=== PATIENT | male | born 1955 | race Caucasian/White ===

== ENCOUNTER 2018-03-20 16:29 | Observation (INO) | payer BC, OTHER ==
--- NOTE | 2018-03-20 17:43 | RAD ---
CHEST ONE VIEW: 03/20/18 HISTORY: 62-year-old male with history of chest pain and shortness of breath. There is bilateral hyperinflation in the mid and upper lung zones bilaterally. Heart size is within n ormal limits. No confluent pneumonia, overt edema, or pleural effusion. IMPRESSION: Bilateral hyperinflation. No pneumonia, edema, pleural effusion, or other acute process. POS: [facility]
[2018-03-20 18:00] LABS: #Eosinphils 0.1 thou/uL (0.0-0.7); #Lymphocytes 0.8 thou/uL (1.20-3.40); #Monocytes 0.5 thou/uL (0.11-0.59); #Neutrophils 5.1 thou/uL (1.40-6.50); %Basophils 0.4 % (0.0-1.0); %Eosinophils 1.1 % (0.0-10.0); %Lymphocytes 12.8 % (21.0-51.0); %Monocytes 7.1 % (0.0-10.0); %Neutrophils 78.6 % (42.0-75.0); Hemoglobin 16.2 g/dL (14.0-18.0); Mean Corpuscular HGB CONC 33.7 g/dL (32.0-36.0); Mean Corpuscular Hemoglobin 34.9 pg (27.0-31.0); Platelet Count 189 thou/uL (130-400); RBC Distribution Width 11.7 % (11.5-14.5); Red Blood Cell (RBC) Count 4.64 mill/uL (4.70-6.10); White Blood Cell (WBC) Count 6.5 thou/uL (4.8-10.8)
[2018-03-20 18:24] LABS: ALT (SGPT) 37 U/L (8-55); AST (SGOT) 29 U/L (5-34); Albumin 4.2 g/dL (3.4-4.8); Alkaline Phosphatase 31 U/L (40-150); Anion Gap 12 mmol/L (10-20); BUN (Urea Nitrogen) 16 mg/dL (8.4-25.7); Bilirubin, Total 0.6 mg/dL (0.2-1.2); CK (CPK) 106 U/L (30-200); Calc. Creatinine Clearance 0 mL/min (70-130); Calcium 8.9 mg/dL (7.8-10.44); Carbon Dioxide 24 mmol/L (23-31); Chloride 105 mmol/L (98-107); Estimated GFR-MDRD 54; Glucose 123 mg/dL (80-115); Lipase 78 U/L (8-78); Magnesium 2.3 mg/dL (1.6-2.6); Potassium 4.4 mmol/L (3.5-5.1); Protein, Total 7.2 g/dL (5.8-8.1); Sodium 137 mmol/L (136-145)
[2018-03-20 18:25] LABS: CKMB 1.2 ng/mL (0-6.6); Troponin I Less than 0.010 ng/mL (< 0.028)
[2018-03-20 21:08] LABS: Bilirubin Negative (Negative); Blood, Urine Negative (Negative); Clarity CLEAR (Clear); Glucose, Urine (Dipstick) Negative (Negative); Leukocyte Negative (Negative); Nitrite Negative (Negative); Protein, Urine (Dipstick) Negative (Neg-Trace); Specific Gravity, Urine 1.014 (1.002-1.036); pH, Urine 7.5 (5.0-9.0)
[2018-03-20 21:23] LABS: Troponin I Less than 0.010 ng/mL (< 0.028)
[2018-03-20 23:01] VITALS: BMI 37.0
[2018-03-20] MEDS ORDERED: Ondansetron PF 4 MG/2 ML Vial IVP PRN (23:06)
[2018-03-20] MEDS ORDERED: Ondansetron ODT 4 MG TAB SL PRN (23:06)
[2018-03-21 00:33] LABS: Troponin I Less than 0.010 ng/mL (< 0.028)
[2018-03-21] MEDS ORDERED: Nitroglycerin 0.4 MG TAB (25 Tab Bottle) PO PRN (01:09)
[2018-03-21] MEDS ORDERED: Senokot S 8.6-50 MG TAB PO PRN (01:09)
[2018-03-21] MEDS ORDERED: Acetaminophen 650 MG Suppository PR PRN (01:09)
[2018-03-21] MEDS ORDERED: Acetaminophen 325 MG TAB PO PRN (01:09)
--- NOTE | 2018-03-21 01:36 | HP ---
PRIMARY CARE PROVIDER: Herrera Garzon M.D. CHIEF COMPLAINT: Shortness of breath. HISTORY OF PRESENT ILLNESS: Mr. Silverman is a pleasant 62-year-old gentleman, who was seen at [facility] on 03/21/2018. He had breakfast yesterday. This was followed by what he describes as stomach upset and nausea. He then started feeling short of breath. The shortness of breath was worse with exertion. He also repo rtedly had generalized weakness and lightheadedness. He denies having fevers, chills or headache. He was recently treated with Bactrim DS for cellulitis and finished the course a couple of days ago. He denies having any chest pain. He reports shortness of breath is better. REVIEW OF SYSTEMS: All other systems reviewed and found to be negative. PAST MEDICAL HISTORY: Gastroesophageal reflux disease and hypertension. PAST SURGICAL HISTORY: Disk repair. PSYCHIATRIC HISTORY: None. SOCIAL HISTORY: The patient drinks alcohol occasionally. He denies tobacco use or recreational drug use. ALLERGIES: No known drug allergies. CURRENT MEDICATIONS: Lisinopril 20 mg daily and omeprazole 20 mg daily. PHYSICAL EXAMINATION: GENERAL: On examination, Mr. Silverman is awake and alert, not in acute distress. He is obese, with a B OH of 37. VITAL SIGNS: He has blood pressure of 141/81, respiratory rate of 22, oxygen saturation 95% on room air and pulse 85. He is afebrile. EYES: No scleral icterus. No conjunctival pallor. ENT: Moist mucosal membranes, no oropharyngeal erythema or exudates. NECK: Supple, nontender. Trachea is midline. RESPIRATORY: Accessory muscles of breathing are not active. Chest wall movements are symmetric bila terally. Lungs are clear to auscultation without wheeze, rhonchi or crepitations. CARDIOVASCULAR: S1 and S2 are heard, regular. Peripheral pulses palpable. No carotid bruits, no pe ricardial rub. ABDOMEN: Soft, nontender, bowel sounds heard, no hepatomegaly, no splenomegaly. NEUROLOGIC: Cranial nerves II-XII intact, deep tendon reflexes 2+. MUSCULOSKELETAL: Power is 5/5 in all 4 extremities. SKIN: No rashes or subcutaneous nodules. LYMPHATIC: No cervical lymphadenopathy. PSYCHIATRIC: Normal mood, normal affect, patient is oriented to person, place, and time. IMAGING AND LABORATORY DATA: Mr. Silverman' labs and investigations were reviewed. I reviewed his elect rocardiogram, which shows normal sinus rhythm, no ST changes to suggest an acute coronary syndrome. I also reviewed his chest x-ray, which does not show any pulmonary infiltrates. He has normal white count, normal hemoglobin, macrocytosis with MCV of 104, normal platelet count, D-dimer less than 0.27 , normal electrolytes, normal blood urea nitrogen, elevated creatinine of 1.35, normal hemoglobin A1c of 5.0, unremarkable liver profile, normal BNP and troponin I negative x3. Urinalysis is negative. ASSESSMENT AND PLAN: Mr. Silverman is a pleasant 62-year-old gentleman, who was seen at [facility] on 03/21/2018. His problem list includes: 1. Shortness of breath: Etiology is unclear at this time. He will be admitted to the hospital for further management. We will check stress test to rule out atypical presentation of acute coronary sy ndrome. 2. Renal insufficiency: Duration is unclear. We will provide intravenous hydration and recheck cre atinine level. 3. Hypertension: We will hold lisinopril for now, given renal insufficiency. We will monitor vital signs and initiate antihypertensives as needed. 4. Gastroesophageal reflux disease: Continue proton pump inhibitor. 5. Macrocytosis: Check vitamin B12 and folate level. Many thanks for allowing me to participate in your patient's care. Please feel free to contact me wi th any questions or concerns. LEVEL OF RISK: High. LEVEL OF COMPLEXITY: High.
[2018-03-21] MEDS: Sodium Chloride 0.9% 1,000 ML IV SCH ×2 (01:46→14:04)
[2018-03-21] MEDS ORDERED: Calcium Carbonate 500 MG ChewTAB PO SCH (02:15)
[2018-03-21 04:16] LABS: #Eosinphils 0.2 thou/uL (0.0-0.7); #Lymphocytes 1.3 thou/uL (1.20-3.40); #Monocytes 0.5 thou/uL (0.11-0.59); #Neutrophils 4.4 thou/uL (1.40-6.50); %Basophils 0.4 % (0.0-1.0); %Eosinophils 2.4 % (0.0-10.0); %Lymphocytes 20.1 % (21.0-51.0); %Monocytes 8.3 % (0.0-10.0); %Neutrophils 68.8 % (42.0-75.0); Hemoglobin 15.2 g/dL (14.0-18.0); Mean Corpuscular HGB CONC 33.9 g/dL (32.0-36.0); Mean Corpuscular Hemoglobin 35.2 pg (27.0-31.0); Mean Platelet Volume 7.3 fL (7.4-10.4); Platelet Count 172 thou/uL (130-400); RBC Distribution Width 11.7 % (11.5-14.5); White Blood Cell (WBC) Count 6.5 thou/uL (4.8-10.8)
[2018-03-21 04:45] LABS: Anion Gap 9 mmol/L (10-20); BUN (Urea Nitrogen) 14 mg/dL (8.4-25.7); Calc. Creatinine Clearance 119 mL/min (70-130); Calcium 8.9 mg/dL (7.8-10.44); Carbon Dioxide 25 mmol/L (23-31); Chloride 107 mmol/L (98-107); Estimated GFR-MDRD 66; Glucose 108 mg/dL (80-115); Potassium 3.8 mmol/L (3.5-5.1); Sodium 137 mmol/L (136-145)
[2018-03-21 05:10] LABS: Folate (Folic Acid) 5.5 ng/mL (7.0-31.4)
[2018-03-21] MEDS ORDERED: Aspirin 325 MG TAB PO SCH ×2 (09:00)
[2018-03-21 15:26] VITALS: BP 179/95; TEMP 97.4
--- NOTE | 2018-03-21 17:14 | NM ---
NUCLEAR MEDICINE CARDIAC SPECT STRESS ONLY WITH EF AND WALL MOTION 03/21/18 HISTORY: 62-year-old male with history ACS, chest pain, hypertension, diabetes mellitus. The exam was performed with adenosine Sestamibi protocol. Patient was injected with 28 millicuries technetium 99m Sestamibi intravenously for stress images. Mu ltiple SPECT images in the short axis, vertical long axis and horizontal long axis demonstrates no sc an evidence for infarct or ischemia. LHR - 0.35. EDV - 100 mL. EF- 63%. Myocardial perfusion wall motion: Wall motion is normal. IMPRESSION: Unremarkable stress only cardiac SPECT. No scan evidence for infarct or ischemia. POS: [facility]
--- NOTE | 2018-03-23 10:29 | DIS ---
DATE OF ADMISSION: 03/20/2018 DATE OF DISCHARGE: 03/21/2018 PRIMARY CARE PHYSICIAN: Dr. Garzon. CONSULTATIONS: None. PROCEDURES: The patient had a stress test with nuclear medicine today, date of discharge. FINDINGS: Unremarkable stress only cardiac SPECT, no evidence for infarct or ischemia. The patient also had a chest x-ray, showed bilateral hyperinflation. No pneumonia, edema, pleural effusion, or o ther acute process was noted. DISCHARGE DIAGNOSES: 1. Shortness of breath, resolved. Etiology is unclear at this time. 2. Renal insufficiency, which is resolved. 3. Hypertension. 4. Gastroesophageal reflux disease. 5. Macrocytosis. REVIEW OF SYSTEMS: Constitutional: The patient denies weight loss or gain. He is able to conduct h is usual activities. DICTATION ENDS HERE
== END 2018-03-21 18:14 | disposition home or self-care (01) ==
LOC: ERS 16:29 → 2SW 20:00
PROVIDERS: ADMIT Family Medicine; ATTEND Family Medicine
DX: R06.02 Shortness of breath (principal); K21.9 Gastro-esophageal reflux disease without esophagitis; D75.89 Other specified diseases of blood and blood-forming organs; N28.9 Disorder of kidney and ureter, unspecified; I10 Essential (primary) hypertension; E66.9 Obesity, unspecified; Z68.37 Body mass index [BMI] 37.0-37.9, adult; Z79.899 Other long term (current) drug therapy; Z98.890 Other specified postprocedural states
CPT/HCPCS: 36415; 71045; 78452; 80048; 80053; 81003; 82553; 82607; 82746; 83036; 83690; 83735; 83880; 84484; 85025; 85379; 93005; 93017; 94760; 96360; 96361; A9500; G0378; J0153